=== PATIENT | female | born 1975 | race Two or more races ===

== ENCOUNTER 2021-06-20 14:48 | Emergency (ER) | payer OTHER ==
[~2021-06-20] VITALS: Ht 157.5 cm; Wt 60.8 kg
[2021-06-20 14:55] VITALS: BP 147/83
--- NOTE | 2021-06-20 15:28 | NUR ---
PATIENT SAID THAT THERE IS NO CHANCE OF , SIGNED WAIVER
[2021-06-20] MEDS ORDERED: KETOROLAC TROMETHAMINE INJ 60 MG/2 ML VIAL IM ONE (15:30)
[2021-06-20] MEDS ORDERED: KETOROLAC TROMETHAMINE INJ 30 MG/ML VIAL ONE (15:32)
--- NOTE | 2021-06-20 15:55 | NUR ---
BACK FROM CT
[2021-06-20] MEDS ORDERED: IBUP-1955 PO (16:43)
[2021-06-20] MEDS ORDERED: CYCL10TA9 PO (16:43)
--- NOTE | 2021-06-20 17:02 | NUR ---
Patient discharged to home in stable condition. Written and verbal after care instructions given. Patient verbalizes understanding of instruction.
== END 2021-06-20 17:03 | disposition home or self-care (01) ==
LOC: ER 14:55
DX: S29.011A Strain of muscle and tendon of front wall of thorax, initial encounter (principal); S60.812A Abrasion of left wrist, initial encounter; S60.811A Abrasion of right wrist, initial encounter; R07.81 Pleurodynia; R10.11 Right upper quadrant pain; Z79.899 Other long term (current) drug therapy; V49.49XA Driver injured in collision with other motor vehicles in traffic accident, initial encounter; Y93.89 Activity, other specified; Y92.413 State road as the place of occurrence of the external cause; Y99.8 Other external cause status
CPT/HCPCS: 71250; 73110 ×2; 73130; 74176; 96372; 99284; J1885